=== PATIENT | female | born 1945 | race Caucasian/White ===

== ENCOUNTER → 2016-12-15 | Outpatient (CLI) | payer MEDICARE, MEDICAID | END | disposition home or self-care (01) | LOC: PCVCIMAG 10:31 | PROVIDERS: ATTEND Internal Medicine Cardiovascular Disease | DX: I73.9 Peripheral vascular disease, unspecified (principal); I21.4 Non-ST elevation (NSTEMI) myocardial infarction; I71.4 Abdominal aortic aneurysm, without rupture; E78.5 Hyperlipidemia, unspecified; M54.5 Low back pain; J44.9 Chronic obstructive pulmonary disease, unspecified; I74.9 Embolism and thrombosis of unspecified artery; M79.7 Fibromyalgia; M19.90 Unspecified osteoarthritis, unspecified site; Z86.79 Personal history of other diseases of the circulatory system | CPT/HCPCS: 93978 ==